=== PATIENT | male | born 1975 | race Caucasian/White ===

== ENCOUNTER 2024-03-30 18:29 | Emergency (ER) | payer BC | END 2024-03-30 19:09 | disposition left against medical advice (07) | LOC: ER 18:30 | DX: T14.8XXA Other injury of unspecified body region, initial encounter (principal); Z53.21 Procedure and treatment not carried out due to patient leaving prior to being seen by health care provider; X58.XXXA Exposure to other specified factors, initial encounter; Y93.89 Activity, other specified; Y92.89 Other specified places as the place of occurrence of the external cause; Y99.8 Other external cause status ==